=== PATIENT | female | born 1995 | race American Indian/Alaskan Native ===

== ENCOUNTER 2017-04-12 00:54 | Emergency (ER) | payer SELFPAY ==
--- NOTE | 2017-04-12 03:28 | XRay Report ---
FINAL REPORT PROCEDURE: XR NECK SOFT TISSUE TECHNIQUE: Soft tissue neck radiographs, 2 views, including AP and lateral. CPT 39296 HISTORY: swallowed tongue ring COMPARISON: No prior studies are available for comparison. FINDINGS: Bone mineralization: Normal. Alignment: Normal. Soft tissues: Epiglottis and hypopharyngeal soft tissues normal. Foreign bodies: None. IMPRESSION: Normal Examination.
--- NOTE | 2017-04-12 09:09 | Emergency Department Report ---
ED General Adult HPI - General Chief complaint: Skin/Abscess/Foreign Body Stated complaint: SWALLOWED TONGUE RING Time Seen by Provider: 04/12/17 08:56 Source: patient Mode of arrival: Ambulatory Limitations: No Limitations - History of Present Illness Initial comments: Patient swallowed a tongue ring both parts. She is asymptomatic at this time. She had a soft tissue view of her neck taken prior to my arrival. It was negative. She is sitting patiently in the hallway without complaint. -: hour(s) Associated Symptoms: denies other symptoms - Related Data Allergies Allergy/AdvReac Type Severity Reaction Status Date / Time No Known Allergies Allergy Unverified 04/12/17 01:36 ED Review of Systems ROS: Stated complaint: SWALLOWED TONGUE RING Other details as noted in HPI Constitutional: denies: chills, fever Eyes: denies: eye pain, eye discharge, vision change ENT: denies: ear pain, throat pain Respiratory: denies: cough, shortness of breath, wheezing Cardiovascular: denies: chest pain, palpitations Endocrine: no symptoms reported Gastrointestinal: denies: abdominal pain, nausea, diarrhea Genitourinary: denies: urgency, dysuria, discharge Musculoskeletal: denies: back pain, joint swelling, arthralgia Skin: denies: rash, lesions Neurological: denies: headache, weakness, paresthesias Psychiatric: denies: anxiety, depression Hematological/Lymphatic: denies: easy bleeding, easy bruising ED Past Medical Hx - Past Medical History Previous Medical History?: No - Surgical History Past Surgical History?: No - Social History Smoking Status: Never Smoker Substance Use Type: None ED Physical Exam - General Limitations: No Limitations General appearance: alert, in no apparent distress - Head Head exam: Present: atraumatic, normocephalic - Eye Eye exam: Present: normal appearance - ENT ENT exam: Present: mucous membranes moist - Neck Neck exam: Present: normal inspection - Respiratory Respiratory exam: Present: normal lung sounds bilaterally. Absent: respiratory distress - Cardiovascular Cardiovascular Exam: Present: regular rate, normal rhythm. Absent: systolic murmur, diastolic murmur, rubs, gallop - GI/Abdominal GI/Abdominal exam: Present: soft, normal bowel sounds. Absent: distended, tenderness, guarding, rebound, rigid - Extremities Exam Extremities exam: Present: normal inspection - Back Exam Back exam: Present: normal inspection - Neurological Exam Neurological exam: Present: alert, oriented X3 - Psychiatric Psychiatric exam: Present: normal affect, normal mood - Skin Skin exam: Present: warm, dry, intact, normal color. Absent: rash ED Course Vital Signs 04/12/17 04/12/17 01:25 05:00 Temperature 98.8 F 99.8 F H Pulse Rate 78 78 Respiratory 17 18 Rate Blood Pressure 124/61 126/78 O2 Sat by Pulse 100 100 Oximetry - Reevaluation(s) Reevaluation #1: Asymptomatic. 04/12/17 09:06 ED Medical Decision Making - Radiology Data Radiology results: report reviewed (soft tissue neck was negative) Critical care attestation.: If time is entered above; I have spent that time in minutes in the direct care of this critically ill patient, excluding procedure time. ED Disposition Clinical Impression: Swallowed foreign body Qualifiers: Encounter type: initial encounter Qualified Code(s): T18.9XXA - Foreign body of alimentary tract, part unspecified, initial encounter Disposition: DC-01 TO HOME OR SELFCARE Is pt being admited?: No Does the pt Need Aspirin: No Condition: Stable Instructions: Foreign Body Ingestion (ED) Additional Instructions: Return any significant abdominal pain for reexamination. Usually a swallowed foreign body like this will pass without difficulty. Referrals: PRIMARY CARE,MD [Primary Care Provider] - 3-5 Days Time of Disposition: 09:07
[2017-04-12 09:14] VITALS: BP 122/72
== END 2017-04-12 09:13 | disposition home or self-care (01) ==
LOC: ED 00:54
DX: T18.8XXA Foreign body in other parts of alimentary tract, initial encounter (principal); X58.XXXA Exposure to other specified factors, initial encounter; Y92.89 Other specified places as the place of occurrence of the external cause; Y93.89 Activity, other specified; Y99.8 Other external cause status
CPT/HCPCS: 70360; 81025; 99283